=== PATIENT | female | born 2000 | race Caucasian/White ===

== ENCOUNTER 2023-09-03 21:41 | Emergency (ER) | payer MEDICAID ==
[~2023-09-03] VITALS: Ht 142.2 cm; Wt 40.9 kg
[2023-09-03 21:58] VITALS: BP 131/72; PULSE 138; RESP 19; TEMP 98.8; O2SAT 98
[2023-09-03 22:33] LABS: FLU A ANTIGEN negative (NEGATIVE); FLU B ANTIGEN NEGATIVE (NEGATIVE)
[2023-09-03 22:45] LABS: BASOPHILS % (AUTO) 0.3 % (0.0-2.0); HEMOGLOBIN 13.3 g/dL (12.0-16.0); LYMPHOCYTES # (AUTO) 1.2 K/uL (2.5-16.5); LYMPHOCYTES % (AUTO) 14.3 % (20.5-51.1); MEAN CORPUSCULAR HEMOGLOBIN 29 pg (27-31); MEAN CORPUSCULAR HGB CONC 34 g/dL (33-37); MEAN CORPUSCULAR VOLUME 84.5 fL (80-94); MONOCYTES # (AUTO) 0.9 K/uL (0.8-1.0); MONOCYTES % (AUTO) 11.4 % (1.7-9.3); NEUTROPHILS # (AUTO) 6.1 K/uL (1.8-7.7); PLATELET COUNT (AUTO) 278 K/uL (140-450); RED BLOOD CELL COUNT(AUTO) 4.61 MIL/uL (4.20-5.40); RED CELL DISTRIBUTION WIDTH 13.7 % (11.6-13.7); WHITE BLOOD COUNT (AUTO) 8.3 K/uL (4.8-10.8)
[2023-09-03 22:58] LABS: ANION GAP 13.5 (8-16); CARBON DIOXIDE 26.9 mmol/L (21-32); CREATININE 0.7 mg/dL (0.6-1.3); POTASSIUM 3.4 mmol/L (3.5-5.1)
[2023-09-04] MEDS ORDERED: IBUP-2213 PO (04:16)
[2023-09-04] MEDS ORDERED: METO-486 PO (04:16)
[2023-09-04] MEDS: diphenhydrAMINE 50 MG CAP PO ONE (04:19)
[2023-09-04] MEDS: SUMAtriptan succinate 50 MG TAB PO ONE (04:20)
[2023-09-04] MEDS: METOCLOPRAMIDE 10 MG TAB PO ONE (04:20)
[2023-09-04] MEDS: KETOROLAC 60 MG/2 ML VIAL IM ONE (04:25)
[2023-09-04 05:25] VITALS: BP 117/72; PULSE 112; RESP 19; TEMP 99.3; O2SAT 98
== END 2023-09-04 05:25 | disposition home or self-care (01) ==
LOC: MED 21:41
DX: G43.909 Migraine, unspecified, not intractable, without status migrainosus (principal); Z20.822 Contact with and (suspected) exposure to COVID-19; E86.0 Dehydration; Z79.899 Other long term (current) drug therapy
CPT/HCPCS: 36415; 80048; 81002; 81025; 85025; 87426; 87804; 96372; 99284; J1885; J8597; Q0163